=== PATIENT | female | born 1945 | race Caucasian/White ===

== ENCOUNTER 2019-10-23 22:02 | Emergency (ER) | payer OTHER ==
[~2019-10-23] VITALS: Ht 157.5 cm; Wt 73.9 kg
[2019-10-23] MEDS ORDERED: METFORMIN HCL1000 M2 (22:17)
[2019-10-23] MEDS ORDERED: LANTUS SOL100 UNIT/1 (22:17)
[2019-10-23] MEDS ORDERED: ZESTRIL40 M1 (22:18)
[2019-10-23] MEDS ORDERED: LIPITOR40 M1 (22:18)
[2019-10-23] MEDS ORDERED: ASPIR 8181 MG (22:18)
[2019-10-24] MEDS ORDERED: BACTRIM DS TAB1 EACH PO (08:38)
== END 2019-10-24 13:04 | disposition home or self-care (01) ==
LOC: ER 22:02
DX: E11.628 Type 2 diabetes mellitus with other skin complications (principal); L02.612 Cutaneous abscess of left foot